=== PATIENT | female | born 1995 | race Caucasian/White ===

== ENCOUNTER → 2016-11-05 | Outpatient (REF) | LOC: WSOH 13:57 → WSPT 15:00 | DX: Z02.1 Encounter for pre-employment examination (principal) ==

== ENCOUNTER → 2016-11-07 | Outpatient (REF) | LOC: WSOH 15:15 | DX: Z02.89 Encounter for other administrative examinations (principal) ==

== ENCOUNTER → 2016-11-07 | Outpatient (REF) | LOC: WSOH 15:27 | DX: Z23 Encounter for immunization (principal) ==

== ENCOUNTER → 2016-11-17 | Outpatient (REF) | LOC: WSOH 14:15 | DX: Z02.89 Encounter for other administrative examinations (principal) ==

== ENCOUNTER → 2016-12-31 | Outpatient (REF) | LOC: WSOH 16:17 | DX: Z23 Encounter for immunization (principal) ==

== ENCOUNTER → 2017-01-31 | Outpatient (REF) | LOC: WSOH 10:00 | DX: Z02.89 Encounter for other administrative examinations (principal) ==

== ENCOUNTER → 2020-12-25 | Outpatient (REF) | LOC: COL.EMP 05:08 | DX: Z20.822 Contact with and (suspected) exposure to COVID-19 (principal) ==